=== PATIENT | male | born 1975 | race Caucasian/White ===

== ENCOUNTER → 2021-06-09 15:50 | Outpatient (BNVA) | payer SELFPAY | PROVIDERS: Family Provider Family Medicine; PCP Family Medicine; Visit Provider Registered Nurse Neonatal Intensive Care | DX: S99.911A Unspecified injury of right ankle, initial encounter (principal); X58.XXXA Exposure to other specified factors, initial encounter | CPT/HCPCS: 73610 ==

== ENCOUNTER → 2021-06-13 11:03 | Outpatient (BNVA) | payer SELFPAY | PROVIDERS: Family Provider Family Medicine; PCP Family Medicine; Visit Provider Nurse Practitioner | DX: S99.911A Unspecified injury of right ankle, initial encounter (principal); X58.XXXA Exposure to other specified factors, initial encounter | CPT/HCPCS: 73630 ==

== ENCOUNTER → 2021-08-31 07:31 | Outpatient (BNVA) | payer SELFPAY | PROVIDERS: Family Provider Family Medicine; PCP Family Medicine Adult Medicine; Visit Provider Family Medicine Adult Medicine | DX: Z13.6 Encounter for screening for cardiovascular disorders (principal); I10 Essential (primary) hypertension | CPT/HCPCS: 80053; 80061; 83036; 84443; 85025; G0103 ==

== ENCOUNTER 2022-01-25 09:06 | Outpatient (CLI) | payer SELFPAY ==
--- NOTE | 2022-01-25 09:30 | MR_ITS ---
WS: [id number] MRI LUMBAR SPINE NONCONTRAST TECHNIQUE: Sagittal T1, T2 and STIR imaging. Axial T1 and T2 imaging. CLINICAL INFORMATION: M51.26 - Other intervertebral disc displacement, lumbar r... COMPARISON: None FINDINGS: Mild lumbar curve. No acute compression. Disc space narrowing worse L4-L5 with endplate degenerative changes. Disc bulging worse L4-L5. L1-L2: Normal. L2-L3: No significant disc bulging. Moderate facet arthropathy. Spinal canal and foramen are patent. L3-L4: Mild annular bulging. Narrowing of the RIGHT subarticular recess. Slight impingement traversin g RIGHT L4 nerve root. Small RIGHT foraminal protrusion with mild RIGHT foraminal narrowing and sligh t contact of the exiting RIGHT L3 nerve root. LEFT foramen is patent. Mild facet arthropathy. L4-L5: Mild disc bulging with shallow LEFT pericentral protrusion. Impingement on the LEFT subarticul ar recess and traversing LEFT L5 nerve root. Recommend correlation with L5 nerve root symptoms. In ad dition, LEFT foraminal protrusion impinges the exiting LEFT L4 nerve root with severe LEFT foraminal narrowing. Suggestion of a far LEFT lateral synovial cyst or extruded disc material measuring 8 mm co ntributes to far LEFT lateral nerve root impingement. Mild RIGHT foraminal narrowing. L5-S1: Mild annular bulging with osteophytic ridging. Moderate facet arthropathy. Tiny LEFT foraminal protrusion with mild LEFT foraminal narrowing. RIGHT foramen is patent. Bilateral renal cysts largest in the RIGHT measuring 2.3 CM MR/MR lumbar spine wo con* [id number] IMPRESSION: 1. Mild lumbar curve. No acute compression. Degenerative endplate edema L4-L5. 2. Shallow LEFT pericentral protrusion L4-L5 impinges the LEFT subarticular re cess and traversing LEFT L5 nerve root. 3. Prominent LEFT foraminal protrusion L4-L5 with severe LEFT foraminal narrow ing. Impingement on the exiting LEFT L4 nerve root. Suggestion of a far LEFT la teral synovial cyst or extruded disc material measuring 8 mm contributes to far LEFT lateral nerve root impingement 4. Small RIGHT foraminal protrusion L3-L4 with mild RIGHT foraminal narrowing. 5. Moderate facet arthropathy worse at L5-S1.
== END 2022-01-25 09:07 | disposition home or self-care (01) ==
LOC: RAD 09:09
PROVIDERS: Family Provider Family Medicine; PCP Family Medicine Adult Medicine; Visit Provider Specialist
DX: M51.26 Other intervertebral disc displacement, lumbar region (principal); R20.2 Paresthesia of skin; R20.0 Anesthesia of skin
CPT/HCPCS: 72148

== ENCOUNTER → 2022-08-11 08:29 | Outpatient (BNVA) | payer SELFPAY | PROVIDERS: Family Provider Family Medicine; PCP Family Medicine Adult Medicine; Visit Provider Family Medicine Adult Medicine | DX: I10 Essential (primary) hypertension (principal) | CPT/HCPCS: 80053; 80061; 85025 ==

== ENCOUNTER → 2024-09-27 08:49 | Outpatient (BNVA) | payer SELFPAY | PROVIDERS: Family Provider Family Medicine; PCP Family Medicine; Visit Provider Family Medicine | DX: I10 Essential (primary) hypertension (principal) | CPT/HCPCS: 80053; 80061; 84439; 84443; 85025 ==

== ENCOUNTER 2025-04-15 12:03 | Outpatient (CLI) | payer BC, MEDICAID, SELFPAY ==
--- NOTE | 2025-04-15 12:13 | XRR_ITS ---
PROCEDURE INFORMATION: Exam: XR Cervical Spine Exam date and time: 04/15/2025 12:22 PM Age: 49 years old Clinical indication: Neck pain; Injury to head & neck region x one year. PT states pain is in left side of neck into lt shoulder. TECHNIQUE: Imaging protocol: Radiologic exam of the cervical spine. Views: 2 or 3 views. COMPARISON: No relevant prior studies available. FINDINGS: Bones/joints: Normal alignment. No acute fracture. Disc spaces are preserved. Minimal marginal spurring at C5-C6. Soft tissues: Unremarkable. XR/XR cervical spine 3V* [id number] IMPRESSION: No acute osseous abnormality.
== END 2025-04-15 12:04 | disposition home or self-care (01) ==
LOC: RAD 12:07
PROVIDERS: Family Provider Family Medicine; PCP Family Medicine; Visit Provider Family Medicine
DX: M54.2 Cervicalgia (principal); G89.29 Other chronic pain
CPT/HCPCS: 72040

== ENCOUNTER → 2025-06-03 10:43 | Outpatient (BNVA) | payer BC, MEDICAID, SELFPAY | PROVIDERS: Family Provider Family Medicine; PCP Family Medicine | DX: M79.673 Pain in unspecified foot (principal) | CPT/HCPCS: 73630 ==